=== PATIENT | male | born 1955 | race Caucasian/White ===

== ENCOUNTER → 2019-01-10 09:33 | Outpatient (CLI) | payer OTHER, SELFPAY ==
--- NOTE | 2019-01-10 | DI.CT.S_ITS ---
PROCEDURE: CT ABDOMEN WO CON INDICATIONS: ABNORMAL LIVER ENZYMES TECHNIQUE: After the administration of oral contrast, 5 mm thick sections acquired from the diaphragms to the iliac crests. 5 mm coronal and sagittal reformats were then performed. For radiation dose reduction, the following was used: automated exposure control, adjustment of mA and/or kV according to patient size. COMPARISON: None. FINDINGS: Image quality: Excellent. Lung bases: Lung bases are clear. Heart size is normal. Solid organs: Liver is normal in size. Gallbladder appears normal. Pancreas is normal in contours. Spleen is normal in size. No adrenal nodules. Both kidneys are normal in size, without hydronephrosis or nephrolithiasis. Peritoneum and bowel: Bowel loops demonstrate normal wall thickness and caliber. No free fluid or air. Nodes and vessels: No retroperitoneal or mesenteric adenopathy by size criteria. At the tha hepatis adjacent to the horizontal course of the main portal vein there are several small apparent lymph nodes containing internal dystrophic calcification and no adjacent inflammation. Aorta and inferior vena cava are normal in size. Bones: No suspicious bony lesions. No vertebral body compression fractures. Miscellaneous: No ventral hernias. IMPRESSION: 1. The quality of visualization is somewhat limited by the absence of intravenous contrast. With this qualification the liver parenchyma shows no evidence of mass lesion or underlying infection. No biliary distention is suspected. 2. The course of the common duct and the pancreatic duct are somewhat well visualized and show no evidence of calculus or distention. 3. Several small lymph nodes at the tha hepatis adjacent to the horizontal course of the main portal vein show internal small dystrophic calcifications. No active inflammatory process involving these lymph nodes or elsewhere throughout the abdomen and visualized upper pelvis is seen. Dictated by: Tacos Bernard M.D. on 01/10/2019 at 9:54 Approved by: Tacos Bernard M.D. on 01/10/2019 at 10:19
== END ==
PROVIDERS: Family Provider Physician Assistant; PCP Physician Assistant; Visit Provider Physician Assistant
DX: R74.8 Abnormal levels of other serum enzymes (principal)
CPT/HCPCS: 74150

== ENCOUNTER → 2019-07-19 19:11 | Outpatient (ROUT) | payer OTHER, SELFPAY ==
[2019-07-19 19:24] LABS: Add Manual Diff / Slide Review NO; Basophils Absolute Auto 100 /uL (0-100); Basophils Percent Auto 0.7 % (0-2); Eosinophils Absolute Auto 200 /uL (0-450); Eosinophils Percent Auto 1.9 % (2-4); Hematocrit 45.1 % (41-53); Hemoglobin 15.5 g/dL (13.5-17.5); Lymphocytes Absolute Auto 1800 /uL (1100-4500); Lymphocytes Percent Auto 17.8 % (25-40); Mean Corpuscular HGB Conc 34.4 % (30-36); Mean Corpuscular Hemoglobin 32.6 PG (26-34); Mean Corpuscular Volume 94.8 fL (80-100); Monocytes Absolute Auto 1200 /uL (0-900); Neutrophils Absolute Auto 6700 /uL (1500-7000); Neutrophils Percent Auto 67.6 % (50-75); Platelet Count 236 X10^3/uL (150-400); Red Blood Cell Count 4.76 X10^6/uL (4.5-5.9); White Blood Cell Count 9.9 X10^3/uL (4.5-11.0)
[2019-07-19 19:36] LABS: HEMOLYSIS < 15 (0-50); Iron 251 ug/dL (49-181)
[2019-07-19 19:47] LABS: Percent Iron Saturation 58 % (20-50); Total Iron Binding Capacity 436 ug/dL (261-462); Transferrin 368 mg/dL (206-381)
[2019-07-19 20:08] LABS: Prostate Specific Antigen 2.28 ng/mL (0.10-4.00)
== END ==
PROVIDERS: Family Provider Physician Assistant; PCP Physician Assistant; Visit Provider Internal Medicine
DX: Z00.00 Encounter for general adult medical examination without abnormal findings (principal); E83.119 Hemochromatosis, unspecified
CPT/HCPCS: 82728; 83540; 83550; 84153; 85025

== ENCOUNTER → 2019-12-02 09:37 | Outpatient (CLI) | payer OTHER, BC, SELFPAY ==
[2019-12-02 16:17] LABS: Creatinine Urine Random 288.8 mg/dL; Protein (Total) Urine Random 6 mg/dL (0-12); Protein Creatinine Ratio Urine 0.02 GRAM/24H
== END ==
PROVIDERS: Family Provider Physician Assistant; PCP Physician Assistant; Visit Provider Internal Medicine
DX: I10 Essential (primary) hypertension (principal); E83.110 Hereditary hemochromatosis
CPT/HCPCS: 36415; 81256; 82570; 84156

== ENCOUNTER → 2020-09-14 19:27 | Outpatient (ROUT) | payer OTHER, BC, SELFPAY ==
[2020-09-14 19:47] LABS: Add Manual Diff / Slide Review NO; Basophils Absolute Auto 0 /uL (0-100); Basophils Percent Auto 0.4 % (0-2); Eosinophils Absolute Auto 200 /uL (0-450); Eosinophils Percent Auto 2.6 % (2-4); Hematocrit 43.3 % (41-53); Hemoglobin 14.5 g/dL (13.5-17.5); Lymphocytes Absolute Auto 1500 /uL (1100-4500); Lymphocytes Percent Auto 19.8 % (25-40); Mean Corpuscular HGB Conc 33.5 % (30-36); Mean Corpuscular Volume 98.5 fL (80-100); Monocytes Absolute Auto 1000 /uL (0-900); Monocytes Percent Auto 13.1 % (3-14); Neutrophils Absolute Auto 4800 /uL (1500-7000); Neutrophils Percent Auto 64.1 % (50-75); Platelet Count 232 X10^3/uL (150-400); Red Blood Cell Count 4.39 X10^6/uL (4.5-5.9); Red Cell Distribution Width 13.8 % (11.6-14.8); White Blood Cell Count 7.4 X10^3/uL (4.5-11.0)
[2020-09-14 19:54] LABS: HEMOLYSIS < 15 (0-50); Iron 59 ug/dL (49-181)
[2020-09-14 19:56] LABS: Alanine Aminotransferase 160 IU/L (<50); Albumin 4.4 g/dL (3.5-5.0); Albumin Globulin Ratio 1.4 (1.0-2.8); Alkaline Phosphatase 134 U/L (38-126); Aspartate Aminotransferase 199 IU/L (17-59); BUN Creatinine Ratio 19.2 (6-22); Bilirubin Total 0.7 mg/dL (0.2-1.3); Blood Urea Nitrogen 14 mg/dL (9-20); Calcium 9.1 mg/dL (8.4-10.2); Carbon Dioxide 29 mmol/L (22-32); Chloride 102 mmol/L (98-107); Cholesterol 262 mg/dL (140-199); Estimated Glomerular Filt Rate > 60.0 mL/min (>60); Globulin 3.2 g/dL (1.7-4.1); Glucose 118 mg/dL (80-110); HDL Cholesterol 48 mg/dL (40-60); HEMOLYSIS < 15 (0-50); LDL Cholesterol Calculated 187 mg/dL (<100); Potassium 4.7 mmol/L (3.4-5.1); Sodium 138 mmol/L (137-145); Total Protein 7.6 g/dL (6.3-8.2); Triglycerides 136 mg/dL (35-150)
[2020-09-14 20:05] LABS: Percent Iron Saturation 14 % (20-50); Total Iron Binding Capacity 425 ug/dL (261-462); Transferrin 322 mg/dL (206-381)
[2020-09-14 20:25] LABS: Prostate Specific Antigen 4.47 ng/mL (0.10-4.00)
[2020-09-14 20:26] LABS: TSH w/ Reflex to FT4 1.42 uIU/mL (0.47-4.68)
[2020-09-14 20:29] LABS: Ferritin 148 ng/mL (18-464)
== END ==
PROVIDERS: Family Provider Physician Assistant; PCP Physician Assistant; Visit Provider Internal Medicine
DX: Z00.00 Encounter for general adult medical examination without abnormal findings (principal); R07.9 Chest pain, unspecified; E78.2 Mixed hyperlipidemia; R94.5 Abnormal results of liver function studies
CPT/HCPCS: 80053; 80061; 82728; 83540; 83550; 84153; 84443; 85025

== ENCOUNTER → 2020-12-31 10:02 | Outpatient (CLI) | payer BC, SELFPAY ==
--- NOTE | 2020-12-31 10:04 | DI.NM.S_ITS ---
PROCEDURE: NM JIMENA PERF SPECT REST & STR Rest and exercise myocardial perfusion SPECT with gated imaging and ejection fraction RADIOPHARMACEUTICAL: 26.9 mCi Tc-99m sestamibi IV at rest and 27.1 mCi Tc-99m sestamibi IV at peak exercise. A two day-protocol was performed. INDICATIONS: Chest pain, unspecified/covid test TECHNIQUE: Radiopharmaceutical was injected at peak stress test, and also at rest. SPECT images were obtained. SPECT myocardial perfusion images were displayed in short axis, horizontal long axis, and vertical long axis views. Gated images were reviewed using [employer] software. COMPARISON: None. CARDIAC STRESS: A standard Ambrosio treadmill exercise tolerance test was performed by the patient under the supervision of an attending staff. The patient exercised for 9 minutes and 26 seconds; functional aerobic impairment (ROBERT) is -15%. Hemodynamic data: There is normal blood pressure and heart rate response to exercise stress. Patient achieved 87% of maximum predicted heart rate at peak exercise. Symptoms: Patient denied chest pain during exercise. EKG: No diagnostic EKG changes of ischemia; occasional PACs and occasional PVCs present during the study. FINDINGS: Raw data: There is good myocardial labeling by radiotracer. No significant motion artifacts. Izbr-xq-lshxt ratio is 0.31 (normal is less than 0.38 for sestamibi tracer, and less than 0.50 for thallium tracer). Left ventricle function: Gated images demonstrate normal left ventricle wall thickening. No segmental wall motion abnormality. No transient ischemic dilation; TID is 0.72 (normal less than 1.3). The left ventricle resting end-diastolic volume is 0.72 mL. Left ventricle stress ejection fraction is 78%; normal values are above 45%. Myocardial perfusion: There is moderately intense fixed inferior wall defect that essentially resolves with prone imaging suggesting artifact than true ischemia or infarction. IMPRESSION: Low risk, probably normal treadmill nuclear stress test 1) There is moderately intense fixed inferior wall defect that essentially resolves with prone imaging suggesting artifact than true ischemia or infarction. 2) Normal left ventricular size, wall motion, and systolic function (EF post stress 78%). 3) No ECG evidence of ischemia. 4) No angina during the study. 5) Reduced exercise tolerance (10.1 METs, ROBERT -15%). Target heart rate achieved. 6) Borderline hypertensive response to exercise (resting BP 140/84mmHg, max BP 210/82mmHg). 7) No prior nuclear stress test available for comparison. Dictated by: Celeste Yousif MD on 01/01/2021 at 13:56 Approved by: Celeste Yousif MD on 01/01/2021 at 14:00
[2020-12-31 10:42] LABS: COVID19 -Nasal RAPID Negative (Negative)
== END ==
PROVIDERS: Family Provider Physician Assistant; PCP Physician Assistant; Referring Provider Internal Medicine; Visit Provider Internal Medicine
DX: R07.9 Chest pain, unspecified (principal); Z20.822 Contact with and (suspected) exposure to COVID-19
CPT/HCPCS: 78452; 87635; 93017; A9502

== ENCOUNTER → 2022-12-03 09:40 | Outpatient (CLI) | payer OTHER, SELFPAY ==
[2022-12-03 10:44] LABS: Hematocrit 43.7 % (41-53); Mean Corpuscular HGB Conc 34.2 % (30-36); Mean Corpuscular Hemoglobin 31.7 PG (26-34); Mean Corpuscular Volume 92.8 fL (80-100); Platelet Count 199 X10^3/uL (150-400); Red Blood Cell Count 4.71 X10^6/uL (4.5-5.9); Red Cell Distribution Width 13.9 % (11.6-14.8); White Blood Cell Count 7.9 X10^3/uL (4.5-11.0)
[2022-12-03 11:19] LABS: Alanine Aminotransferase 32 IU/L (<50); Albumin 4.4 g/dL (3.5-5.0); Albumin Globulin Ratio 1.4 (1.0-2.8); Alkaline Phosphatase 94 U/L (38-126); Aspartate Aminotransferase 33 IU/L (17-59); BUN Creatinine Ratio 16.9 (6-22); Blood Urea Nitrogen 12 mg/dL (9-20); Calcium 9.3 mg/dL (8.4-10.2); Carbon Dioxide 23 mmol/L (22-32); Chloride 101 mmol/L (98-107); Cholesterol 255 mg/dL (140-199); Estimated Glomerular Filt Rate > 60 mL/min (>60); Globulin 3.2 g/dL (1.7-4.1); Glucose 120 mg/dL (80-110); HDL Cholesterol 56 mg/dL (40-60); HEMOLYSIS < 15 (0-50); LDL Cholesterol Calculated 164 mg/dL (<100); Potassium 4.5 mmol/L (3.4-5.1); Sodium 135 mmol/L (137-145); Total Protein 7.6 g/dL (6.3-8.2); Triglycerides 174 mg/dL (35-150)
[2022-12-03 11:36] LABS: TSH w/ Reflex to FT4 2.79 uIU/mL (0.47-4.68)
[2022-12-03 11:42] LABS: Prostate Specific Antigen Scrn 5.97 ng/mL (0.1-4.0)
== END ==
PROVIDERS: Family Provider Physician Assistant; PCP Internal Medicine; Referring Provider Internal Medicine; Visit Provider Internal Medicine
DX: E78.2 Mixed hyperlipidemia (principal); I10 Essential (primary) hypertension; K70.30 Alcoholic cirrhosis of liver without ascites; Z12.5 Encounter for screening for malignant neoplasm of prostate
CPT/HCPCS: 36415; 80053; 80061; 84443; 85027; G0103

== ENCOUNTER → 2023-02-27 09:29 | Outpatient (CLI) | payer OTHER, SELFPAY ==
[2023-03-01 20:42] LABS: PSA Free % 12.6 % (.); PSA, Total 4.2 ng/mL (0.0-4.0)
== END ==
PROVIDERS: Family Provider Physician Assistant; PCP Internal Medicine; Referring Provider Specialist; Visit Provider Specialist
DX: R97.20 Elevated prostate specific antigen [PSA] (principal)
CPT/HCPCS: 36415; 84153; 84154

== ENCOUNTER 2024-05-19 08:11 | Emergency (ER) | payer OTHER, SELFPAY ==
[2024-05-19 08:21] VITALS: BP 162/80; PULSE 76; RESP 17; TEMP 36.9; O2SAT 100; BMI 31.5
--- NOTE | 2024-05-19 08:34 | ED_ITS ---
HPI - Extremity Problem General Chief complaint: Extremity Problem,Nontraumatic Stated complaint: R knee swelling Time Seen by Provider: 05/19/24 08:29 Source: patient Mode of arrival: Family Vehicle History of Present Illness HPI Narrative: Patient is a 61-year-old male with a history of gout he was here for evaluation of maximally 3 days of swelling in his right knee. He reports no specific trauma. No fevers. He was able to ambulate. He states that he was never had gout in his knees before but only in his toes and this does not necessarily feel like prior history of gout however did start after he ate a hamburger and drank some beer a couple nights ago. He states he was outside using a weed whacker a couple days ago but does not specifically remember any incident that would have caused the discomfort. He states he was having a hard time sleeping at night because of the swelling and pain. Related Data Home Medications Medication Instructions Recorded Confirmed cyanocobalamin (vitamin B-12) 50 50 mcg PO DAILY 01/14/23 01/14/23 mcg tablet (Vitamin B-12) zinc acetate 50 mg (zinc) capsule 50 mg PO DAILY 01/14/23 01/14/23 (Galzin) Previous Rx's Medication Instructions Recorded atenolol 25 mg tablet 25 mg PO HS #90 tabs 09/18/22 rosuvastatin 10 mg tablet 10 mg PO DAILY #90 tabs 12/05/22 tamsulosin 0.4 mg capsule 0.8 mg (2 x 0.4 mg) PO BEDTIME 03/05/23 #180 caps colchicine 0.6 mg capsule 0.6 mg PO DAILY #1 cap 05/19/24 Allergies Allergy/AdvReac Type Severity Reaction Status Date / Time No Known Allergies Allergy Uncoded 05/19/24 08:31 Review of Systems Constitutional Constitutional: Reports system reviewed and no additional complaints, except as documented Musculoskeletal Musculoskeletal: Reports system reviewed and no additional complaints, except as documented Integumentary/Breasts Skin/Breast: Reports system reviewed and no additional complaints, except as documented Patient History Medical History BPH w urinary obs/LUTS Asthma Elevated PSA Generalized anxiety disorder Dupuytren contracture Encounter for general adult medical examination without abnormal findings History of colonic polyps Mumps (~1960) Chicken pox (~1959) Obesity Chronic insomnia Chronic back pain Hemochromatosis Alcohol use disorder Iron overload Alcoholic cirrhosis (~2020) Mixed hyperlipidemia Essential hypertension (~2001) Surgical History Anesthesia History of hernia repair History of liver biopsy History of total shoulder replacement Family History Mother Lung cancer Brother Cancer of kidney Diabetes mellitus Hypertension Hyperlipidemia Sister Hypertension Hyperlipidemia Social History marital status: number of children: 2 Smoking Status: Former smoker Type(s) of exercise: aerobic frequency: 3-4 times per week Smoking Status: Former smoker tobacco type: cigarettes alcohol intake frequency: 0-2 drinks per day Substance Use Type: does not use Exam Initial Vital Signs Initial Vital Signs: Vital Signs Temperature 98.4 F 05/19/24 08:21 Pulse Rate 76 05/19/24 08:21 Respiratory Rate 17 05/19/24 08:21 Blood Pressure 162/80 H 05/19/24 08:21 Pulse Oximetry 100 05/19/24 08:21 Oxygen Delivery Method Room Air 05/19/24 08:21 Skin General: no rashes or lesions noted Other: No redness or erythema over the right knee Neuro Sensory Exam: no sensory deficits noted Extrem Other: Patient has an effusion to the right knee. It was not tender to the palpation. Patellar tendon and quadriceps tendon is intact. Hamstrings intact. Procedures Joint Aspiration Joint Asp./Inject. 1: Side of body: right Joint Aspirated: knee Ultrasound Guidance: No Skin Prep: Povidone-Iodine1% Local Anesthetic: lidocaine 1% Amount of anesthesia used (mL): 3 Needle Size Used: 18G Fluid Obtained: turbid Total fluid obtained (mL): 60 Patient Tolerated Procedure: Well and No complications Course Orders Ordered: ED Orders 05/19/24 08:00 Crystals Body Fluid - IN-HOUSE Stat 05/19/24 08:40 Body Fluid Culture Stat Cell Count w Diff Body Fluid Stat Vital Signs Vital signs: Vital Signs - 8 hr 05/19/24 08:21 Temperature 98.4 F Pulse Rate 76 Respiratory Rate 17 Blood Pressure 162/80 H Pulse Oximetry 100 Oxygen Delivery Method Room Air MDM - Extremity (Nontraumatic) Lab Data Labs: Lab Results 05/19/24 05/19/24 Range/Units 08:00 08:40 Fluid Color Yellow Fluid Appearance Cloudy Fluid RBC 32748 /uL Fld Tot Nucleated Cell 34302 /uL Fluid Neutrophils % 97 % Fluid Lymphocytes % 0 % Fluid Meso/Macro/[place] % 3 % Fluid Crystals Monosodium urate msu H (NONE) Body Fluid Clot No clots present MDM Narrative Medical decision making narrative: Patient does have crystals in the knee fluid that is consistent with gout. I am somewhat surprised that this given the external appearance however he does have a history of gout in his right toe and the symptoms started after eating a meal that could predispose him to gout. He does have nucleated cells however I have less suspicion that this is a septic joint. Will start on colchicine. He has Indocin at home that he can take as needed. There was a culture pending at the time of discharge. He was given return precautions and follow-up instructions. He expressed understanding and agreement. Discharge Plan Departure Patient Disposition: Home Clinical Impression: Gout Instructions: Gout Activity Restrictions/Additional Instructions: The synovial fluid that we withdrew today does have crystals consistent with gout. You were given a dose of colchicine here in the emergency department. A follow-up dose that you can take if needed 1 hour after discharged from the emergency department was sent to [facility]. Contact your primary doctor for a follow-up. Return to the emergency department for new or worsening symptoms. There was a culture that was pending at the time of your discharge and we will contact you if this is positive which would require antibiotics. Prescriptions: New colchicine 0.6 mg capsule 0.6 mg PO DAILY Qty: 1 0RF No Action atenolol 25 mg tablet 25 mg PO HS Qty: 90 3RF rosuvastatin 10 mg tablet 10 mg PO DAILY Qty: 90 3RF Galzin 50 mg (zinc) capsule 50 mg PO DAILY Vitamin B-12 50 mcg tablet 50 mcg PO DAILY tamsulosin 0.4 mg capsule 0.8 mg PO BEDTIME Qty: 180 3RF Referrals: Efra Munson MD [Primary Care Provider] - Stand Alone Forms: Patient Portal/API
--- NOTE | 2024-05-19 08:46 | PC.NURSE ---
right knee tap by Dr. Aranda. fluid is brown , 60 cc
[2024-05-19 09:13] LABS: Body Fluid Red Blood Cells 11884 /uL; Body Fluid Tot Nucleated Cells 70118 /uL
[2024-05-19 09:28] LABS: Crystals Body Fluid - IN-HOUSE Monosodium Urate MSU
[2024-05-19 09:34] LABS: Body Fluid Color YELLOW
[2024-05-19 09:36] LABS: Body Fluid Clotted? NO CLOTS PRESENT
[2024-05-19 09:37] LABS: Body Fluid Appearance CLOUDY
[2024-05-19 09:41] LABS: Lymphocytes Body Fluid 0 %; MESO/MACRO/MONO Body Fluid 3 %; Neutrophils Body Fluid 97 %
[2024-05-19 10:47] VITALS: BP 132/75; PULSE 69; O2SAT 100
[2024-05-19 10:53] VITALS: BP 135/72; PULSE 98; O2SAT 100
[2024-05-19] MEDS: COLCHICINE 0.6 MG TABLET 1.2 MG PO (10:53)
== END 2024-05-19 11:03 | disposition home or self-care (01) ==
PROVIDERS: Emergency Provider Emergency Medicine; Family Provider Physician Assistant; PCP Internal Medicine
DX: M10.9 Gout, unspecified (principal)
CPT/HCPCS: 20610; 87070; 87075; 87205; 89051; 89060; 99283; 99284